=== PATIENT | male | born 1985 | race Hispanic/Latino ===

== ENCOUNTER 2017-03-15 19:13 | Emergency (ER) | payer OTHER ==
[~2017-03-15] VITALS: Ht 172.7 cm; Wt 127.4 kg
[~2017-03-15 19:13] MED LIST: AMOXICILLIN500 MG OR; AMOXICILLIN500 MG PO; CIPROFLOXACN500 MG PO; CLARITIN10 M1 PO; LOMOTIL2.5 MG PO; LORTAB 5/3255 MG PO; NAPROSYN500 MG PO; NO; ULTRAM50 M1 PO
[2017-03-15] MEDS ORDERED: CORTISPORIN OTI10 ML AU (20:00)
[2017-03-15] MEDS ORDERED: AMOXICILLIN/PO500 MG PO (20:00)
[2017-03-15 20:09] VITALS: BP 143/64
== END 2017-03-15 20:09 | disposition home or self-care (01) | DRG 153 ==
LOC: ED 19:13
PROC: 09C4XZZ Extirpation of Matter from Left External Auditory Canal, External Approach (ICD-10-PCS; principal; 2017-03-15)
DX: H66.93 Otitis media, unspecified, bilateral (principal); T16.2XXA Foreign body in left ear, initial encounter; X58.XXXA Exposure to other specified factors, initial encounter; Y93.E8 Activity, other personal hygiene; Y92.009 Unspecified place in unspecified non-institutional (private) residence as the place of occurrence of the external cause

== ENCOUNTER 2017-09-15 20:30 | Emergency (ER) | payer OTHER ==
[~2017-09-15] VITALS: Ht 172.7 cm; Wt 127.0 kg
[~2017-09-15 20:30] MED LIST changes: +AMOXICILLIN/PO500 MG PO; +CORTISPORIN OTI10 ML AU
[2017-09-15] MEDS ORDERED: ORPHENADRINE100 MG PO (21:05)
[2017-09-15] MEDS ORDERED: ULTRAM50 M1 PO (21:05)
[2017-09-15 21:35] VITALS: BP 119/73
== END 2017-09-15 21:35 | disposition home or self-care (01) | DRG 563 ==
LOC: ED 20:30
DX: S29.012A Strain of muscle and tendon of back wall of thorax, initial encounter (principal); X50.0XXA Overexertion from strenuous movement or load, initial encounter; Y93.H9 Activity, other involving exterior property and land maintenance, building and construction; Y92.89 Other specified places as the place of occurrence of the external cause

== ENCOUNTER 2018-02-15 14:59 | Emergency (ER) | payer SELFPAY ==
[~2018-02-15] VITALS: Ht 172.7 cm; Wt 123.8 kg
[~2018-02-15 14:59] MED LIST changes: +ORPHENADRINE100 MG PO
[2018-02-15] MEDS ORDERED: CYCLOBENZAPRINE5 MG PO (16:06)
[2018-02-15] MEDS ORDERED: MOTRIN400 MG PO (16:06)
[2018-02-15 16:15] VITALS: BP 135/70
== END 2018-02-15 16:20 | disposition home or self-care (01) | DRG 552 ==
LOC: ED 14:59
DX: M54.32 Sciatica, left side (principal)

== ENCOUNTER 2018-03-21 09:54 | Emergency (ER) | payer OTHER ==
[~2018-03-21] VITALS: Ht 172.7 cm; Wt 90.9 kg
[~2018-03-21 09:54] MED LIST changes: +CYCLOBENZAPRINE5 MG PO; +MOTRIN400 MG PO
[2018-03-21] MEDS ORDERED: AUGMENTIN500TAB PO (10:11)
[2018-03-21] MEDS ORDERED: TORADOL PO (10:11)
[2018-03-21 10:20] VITALS: BP 131/98
== END 2018-03-21 10:20 | disposition home or self-care (01) | DRG 156 ==
LOC: ED 09:54
DX: K11.20 Sialoadenitis, unspecified (principal); K08.89 Other specified disorders of teeth and supporting structures

== ENCOUNTER 2018-05-26 20:31 | Emergency (ER) | payer SELFPAY ==
[~2018-05-26] VITALS: Ht 172.7 cm; Wt 100.0 kg
[~2018-05-26 20:31] MED LIST changes: +AUGMENTIN500TAB PO; +TORADOL PO
[2018-05-26 21:58] VITALS: BP 152/82
== END 2018-05-26 22:12 | disposition home or self-care (01) | DRG 605 ==
LOC: ED 20:31
DX: S80.812A Abrasion, left lower leg, initial encounter (principal); W01.0XXA Fall on same level from slipping, tripping and stumbling without subsequent striking against object, initial encounter; Y93.89 Activity, other specified; Y92.89 Other specified places as the place of occurrence of the external cause

== ENCOUNTER 2019-01-18 11:36 | Emergency (ER) | payer MEDICAID ==
[~2019-01-18] VITALS: Ht 172.7 cm; Wt 125.0 kg
[2019-01-18 12:51] LABS: HEMATOCRIT 44.6 % (39.0-50.0); IMMATURE GRANULOCYTES 0.5 % (0.0-5.0); MEAN CELL VOLUME 85.4 fL CALC (80.0-100.0); MEAN CORPUSCULAR HGB 28.7 pG CALC (26.0-32.0); MEAN CORPUSCULAR HGB CONC 33.6 g/L CALC (32.0-36.0); NEUT# 9.71 thou/uL (1.82-7.42); RED BLOOD COUNT 5.22 mill/uL (4.70-6.10); RED CELL DISTRI WIDTH 12.9 % (11.5-15.5)
[2019-01-18 13:10] LABS: URINE BILIRUBIN - DIPSTICK NEGATIVE (NEGATIVE); URINE BLOOD DIPSTICK MODERATE (NEGATIVE); URINE COLOR YELLOW; URINE GLUCOSE - DIPSTICK NEGATIVE (NEGATIVE); URINE KETONE NEGATIVE (NEGATIVE); URINE NITRITE - DIPSTICK NEGATIVE (Negative); URINE PH 5.5 (4.5-8.0); URINE PROTEIN - DIPSTICK TRACE mg/dL (NEG-TRACE); URINE UROBILINOGEN - DIPSTICK 0.2 E.U./dL (0.2)
[2019-01-18 13:12] LABS: URINE LEUK ESTERASE MODERATE (NEGATIVE)
[2019-01-18 13:24] LABS: ALBUMIN 4.6 g/dL (3.2-5.0); ALKALINE PHOSPHATASE 108 u/l (38-126); ANION GAP 14 (6-22 (CALC)); BILIRUBIN, TOTAL 0.8 mg/dL (0.0-1.4); BUN 19 mg/dL (9-20); BUN/CREATININE RATIO 28 (12-20 (CALC)); CARBON DIOXIDE 29 mmol/l (22-30); CHLORIDE 102 mmol/l (95-108); CREATININE 0.7 mg/dL (0.7-1.3); GFR > 60 ML/MIN (>=60 (CALC)); GFR FOR AFR.AMER. > 60 ML/MIN (>=60 (CALC)); LIPASE 86 u/l (23-300); POTASSIUM 3.9 mmol/l (3.5-5.1); SGOT/AST 56 u/l (17-59); SODIUM 141 mmol/l (137-146); TOTAL PROTEIN 7.8 g/dL (6.3-8.2)
[2019-01-18 13:25] LABS: URINE RBC TNTC RBC/hpf (0-5); URINE SQUAMOUS EPITHELIAL CELL FEW EPI/hpf (0-FEW); URINE WBC TNTC WBC/hpf (0-5)
[2019-01-18 13:26] LABS: URINE BACTERIA MODERATE hpf
[2019-01-18] MEDS ORDERED: ULTRAM50 M1 PO (15:44)
[2019-01-18] MEDS ORDERED: KEFLEX500 M1 PO (15:44)
[2019-01-18 15:57] VITALS: BP 130/62
== END 2019-01-18 15:58 | disposition home or self-care (01) ==
LOC: ED 11:36
PROVIDERS: Emergency Medicine
DX: N13.6 Pyonephrosis (principal)

== ENCOUNTER 2020-01-31 18:48 | Inpatient (IN) | payer MEDICAID ==
[~2020-01-31] VITALS: Ht 172.7 cm; Wt 117.7 kg
[~2020-01-31 18:48] MED LIST changes: +KEFLEX500 M1 PO
--- NOTE | 2020-01-31 19:58 | NUR ---
PATIENT ESCORTED TO TREATMENT ROOM. AMBULATORY WITHOUT ASSITANCE. CHANGED INTO GOWN.
--- NOTE | 2020-01-31 19:59 | NUR ---
PROVIDER AT BEDSIDE
[2020-01-31 20:33] LABS: HEMATOCRIT 38.9 % (39.0-50.0); HEMOGLOBIN 13.3 g/dl (14.0-18.0); IMMATURE GRANULOCYTES 0.5 % (0.0-5.0); MEAN CELL VOLUME 83.3 fL CALC (80.0-100.0); MEAN CORPUSCULAR HGB 28.5 pG CALC (26.0-32.0); MEAN CORPUSCULAR HGB CONC 34.2 g/dL CAL (32.0-36.0); NEUT# 12.31 thou/uL (1.82-7.42); RED BLOOD COUNT 4.67 mill/uL (4.70-6.10); RED CELL DISTRI WIDTH 12.8 % (11.5-15.5)
--- NOTE | 2020-01-31 20:41 | NUR ---
pt to ct. no nausea or vomiting since arriving to ed.
[2020-01-31 20:46] LABS: URINE BILIRUBIN - DIPSTICK NEGATIVE (NEGATIVE); URINE BLOOD DIPSTICK SMALL (NEGATIVE); URINE COLOR YELLOW; URINE GLUCOSE - DIPSTICK NEGATIVE (NEGATIVE); URINE KETONE NEGATIVE (NEGATIVE); URINE NITRITE - DIPSTICK NEGATIVE (Negative); URINE PROTEIN - DIPSTICK TRACE mg/dL (NEG-TRACE); URINE SPECIFIC GRAVITY 1.015; URINE UROBILINOGEN - DIPSTICK 0.2 E.U./dL (0.2)
[2020-01-31 20:47] LABS: URINE LEUK ESTERASE LARGE (NEGATIVE)
[2020-01-31 20:50] LABS: ALBUMIN 4.6 g/dL (3.2-5.0); ALKALINE PHOSPHATASE 120 u/l (38-126); AMYLASE 163 u/l (30-110); ANION GAP 13 (6-22 (CALC)); BILIRUBIN, TOTAL 0.6 mg/dL (0.0-1.4); BUN 29 mg/dL (9-20); CARBON DIOXIDE 29 mmol/l (22-30); CHLORIDE 101 mmol/l (95-108); LIPASE 99 u/l (23-300); POTASSIUM 4.1 mmol/l (3.5-5.1); SGOT/AST 22 u/l (17-59); SODIUM 138 mmol/l (137-146); TOTAL PROTEIN 9.2 g/dL (6.3-8.2)
[2020-01-31 20:51] LABS: BUN/CREATININE RATIO 13 (12-20 (CALC)); CREATININE 2.3 mg/dL (0.7-1.3); GFR 33 ML/MIN (>=60 (CALC)); GFR FOR AFR.AMER. 39 ML/MIN (>=60 (CALC))
[2020-01-31 20:56] LABS: URINE WBC TNTC WBC/hpf (0-5)
--- NOTE | 2020-01-31 21:46 | NUR ---
DB REFUSED LAB DRAW FOR SECOND SET OF BLOOD CULTURES. NO VOMITING OR C/O NAUSEA SINCE ARRIVING AT ED. RESTING QUIETLY AT THIS TIME.
--- NOTE | 2020-01-31 22:26 | NUR ---
REPROT GIVEN TO TO CLAY ARTISAN. PATIENT TO BE TAKEN TO INPATIENT BED 5.
[2020-01-31 23:04] VITALS: BP 139/69
--- NOTE | 2020-01-31 23:04 | NUR ---
34 yr old tuval[place] male admitted to [facility] as med surg overflow per stretcher from er. transferred self to bed. bed weight obtained. speaks limited chilean but able to make needs known. history obtained per er record. oriented to room. fall precautions initiated. ivf began as ordered.
--- NOTE | 2020-02-01 04:00 | NUR ---
eyes closed. nad. ivf infusing well.
--- NOTE | 2020-02-01 06:20 | NUR ---
blood drawn & sent to lab.
[2020-02-01 07:00] LABS: HEMATOCRIT 35.7 % (39.0-50.0); HEMOGLOBIN 11.8 g/dl (14.0-18.0); IMMATURE GRANULOCYTES 0.4 % (0.0-5.0); MEAN CELL VOLUME 85.6 fL CALC (80.0-100.0); MEAN CORPUSCULAR HGB 28.3 pG CALC (26.0-32.0); MEAN CORPUSCULAR HGB CONC 33.1 g/dL CAL (32.0-36.0); NEUT# 10.25 thou/uL (1.82-7.42); RED BLOOD COUNT 4.17 mill/uL (4.70-6.10); RED CELL DISTRI WIDTH 12.8 % (11.5-15.5)
--- NOTE | 2020-02-01 07:00 | NUR ---
RECVD REPORT FROM YAJAIRA TOBIAS @START OF SHIFT.
--- NOTE | 2020-02-01 07:35 | NUR ---
PT SITTING UP IN BED, EATING BREAKFAST. PT DENIES N/V. DENIES PAIN. PT USES URINAL @BEDSIDE. PETERSON. BREATHING EVEN/UNLABORED.
[2020-02-01 07:54] LABS: CREATININE 2.2 mg/dL (0.7-1.3); POTASSIUM 4.1 mmol/l (3.5-5.1)
[2020-02-01 08:00] VITALS: BP 140/79
--- NOTE | 2020-02-01 08:38 | NUR ---
MED REC COMPLETED. PT STATES NO HOME MEDS.
--- NOTE | 2020-02-01 08:44 | NUR ---
PER MD, WILL PLACE PT ON COMFORT MEASURES ONLY. MONITOR TODAY FOR IMPROVEMENTS, WILL DISCUSS HOSPICE TOMORROW. DAUGHTER WANTS PT TO REMAIN AT [facility]. WILL REMOVE BP CUFF FOR PTS COMFORT. DOWNGRADED PT TO [facility].
--- NOTE | 2020-02-01 09:54 | NUR ---
PT REQUEST LABORER [employer]Y [employer] FOR MD ASSESSMENT. PT HAS BEEN SPEAKING KINYARWANDA TO THIS RN W/OUT DIFFICULTY- ANSWERS QUESTIONS CORRECTLY.
--- NOTE | 2020-02-01 10:00 | NUR ---
DR MCGOWAN NOTIFIED OF CONSULT. LM WITH OFFICE.
--- NOTE | 2020-02-01 10:16 | NUR ---
@BEDSIDE FOR ASSESSMENT W/PORTRAIT PHOTOGRAPHER. PT C/O N/V & NOT BEING ABLE TO KEEP ANYTHING DOWN x2 WEEKS. STATE HE RECENTLY HAD A KIDNEY STONE REMOVED BUT DOESNT REMEMBER THE DRS NAME. STATE THAT DR TOLD HIM HE HAD TO F/UP BC HE WILL HAVE MORE KIDNEY PROBLEMS BUT PT LOST HIS INS. HE CUTS LAWNS FOR A LIVING.
[2020-02-01 12:00] VITALS: BP 121/66
--- NOTE | 2020-02-01 12:08 | NUR ---
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 LM ON DR TAWOOD CELLPHONE.
[2020-02-01 12:50] VITALS: BP 126/76
--- NOTE | 2020-02-01 12:50 | NUR ---
PT TRANSFERRED TO MED SURG VIA WITH STAFF AND ALL BELONGINGS.
--- NOTE | 2020-02-01 12:58 | NUR ---
PT TRANSFERED TO [facility] [address] WITH ALL BELONGINGS.
--- NOTE | 2020-02-01 14:45 | NUR ---
INFORMED PT WITH DIRECTOR OF DEVELOPMENT AND MARKETING OF DEBORA (). THAT DR ATWOOD IS WANTING A FORD PLACED. PT "WANTS TO THINK ABOUT IT, THEN WILL LET US KNOW".
[2020-02-01 15:25] VITALS: BP 126/76
--- NOTE | 2020-02-01 16:00 | NUR ---
PT IS RESTING IN BED WITH NO DISTRESS NOTED. IV SITE IS FREE FROM REDNESS OR EDEMA.
--- NOTE | 2020-02-01 16:50 | NUR ---
ATTEMPTED TO PLACE A #16 AND #18 MALTESE FORD UNSUCCESFUL.
--- NOTE | 2020-02-01 16:52 | NUR ---
UNABLE TO GET THE FORD INTO THE HEAD OF THE PENIS. INFORMED DR ATWOOD, INQUIRED IF HE WAS UNCIRCUMICISED OR HAD A STRICTURE. INFORMED OF THE STRICTURE IS GOING TO COME AND SEE HIM AND SEE WHAT CAN BE DONE.
[2020-02-01 18:26] VITALS: BP 145/86
--- NOTE | 2020-02-01 18:30 | NUR ---
DR ATWOOD IN TO VISIT WITH PT. DEBORA WAGNER INTERPRETED FOR THE DR. AND EXPLAIEND THE SITUATION AND WHAT NEEDED TO BE DONE. PT IS REFUSING ANY INTERVENTIONS AT THIS TIME. CONTINUE TO OSBERVE AND MONITOR.
--- NOTE | 2020-02-01 20:00 | NUR ---
ASSESSMENT COMPLETED. PT. DROWSY AND AWAKENS WITH STIMULI. NO DISTRESS NOTED; DENIES NEEDS/PAIN. UPDATED ON POC. PT. REPORTS NO BURNING OR PAIN DURING URINATION. ENCOURAGED TO CALL FOR ANY NEEDS. CALL LIGHT IS IN REACH.
--- NOTE | 2020-02-01 23:27 | NUR ---
PT. VOMITED 100CC OF EMESIS; MEDICATED WITH ORDERED PRN ZOFRAN; NEW ORDER RECEIVED FROM DR. RODRIGUEZ; WILL REASSESS. PT. DENIES FURTHER NEEDS.
--- NOTE | 2020-02-02 03:00 | NUR ---
RESTING IN BED WITH NO DISTRESS NOTED; DENIES NEEDS. CALL LIGHT IS IN REACH.
[2020-02-02 03:47] VITALS: BP 142/85
[2020-02-02 07:38] VITALS: BP 154/96
--- NOTE | 2020-02-02 07:38 | NUR ---
PT SLEEPING IN BED. AWAKENED TO COMPLETE ASSESSMENT. A&O X3. WITH A FLAT AFFECT. PT DENIES ANY PAIN OR NEEDS AT THIS TIME. ASSESSMENT COMPLETED. DISCUSSED POC. CALL LIGHT IN REACH. CONTINUE TO MONITOR.
--- NOTE | 2020-02-02 12:30 | NUR ---
PT SITTING ON THE SIDE OF THE BED EATING LUNCH. NO NEEDS AT THIS TIME. CALL LIGHT IN REACH. CONTINUE TO MONITOR
[2020-02-02 16:00] VITALS: BP 129/84
--- NOTE | 2020-02-02 17:58 | NUR ---
PT C/O OF NAUSEA, ZOFRAN GIVEN.
--- NOTE | 2020-02-02 19:05 | NUR ---
REPORT FROM AVELINA GATES. PT RESTING IN BED WITH EYES CLOSED. ALERT AND ORIENTED. PT DENIES ANY PAIN OR DISCOMFORT. IV SITE APPEARS HEALTHY. PT DENIES ANY CURRENT WANTS OR NEEDS. DISCUSSED POC. PT VERBALIZED UNDERSTANDING. CALL LIGHT WITHIN REACH. WILL CONTINUE TO MONITOR.
[2020-02-02 19:25] VITALS: BP 140/96
--- NOTE | 2020-02-02 23:40 | NUR ---
PT RESTING IN BED WITH EYES CLOSED. NO APPARENT DISTRESS NOTED. CALL LIGHT WITHIN REACH. WILL CONTINUE TO MONITOR.
[2020-02-03 00:06] VITALS: BP 122/82
--- NOTE | 2020-02-03 03:32 | NUR ---
PT RESTING IN BED WITH EYES CLOSED. NO APPARENT DISTRESS NOTED. CALL LIGHT WITHIN REACH. WILL CONTINUE TO MONITOR.
[2020-02-03 04:37] VITALS: BP 154/99
[2020-02-03 05:13] LABS: HEMATOCRIT 35.5 % (39.0-50.0); HEMOGLOBIN 11.7 g/dl (14.0-18.0); IMMATURE GRANULOCYTES 0.3 % (0.0-5.0); MEAN CELL VOLUME 85.7 fL CALC (80.0-100.0); MEAN CORPUSCULAR HGB 28.3 pG CALC (26.0-32.0); NEUT# 7.41 thou/uL (1.82-7.42); RED BLOOD COUNT 4.14 mill/uL (4.70-6.10); RED CELL DISTRI WIDTH 12.6 % (11.5-15.5)
[2020-02-03 05:39] LABS: CREATININE 2.1 mg/dL (0.7-1.3); POTASSIUM 4.2 mmol/l (3.5-5.1)
[2020-02-03 07:08] VITALS: BP 140/87
--- NOTE | 2020-02-03 07:08 | NUR ---
PT SLEEPING IN BED. AWAKENED TO COMPLETE ASSESSMENT. A&O X3. FLAT AFFECT NOTED. PT DENIES ANY PAIN OR NEEDS AT THIS TIME. ASSESSMENT COMPLETED. DISCUSSED POC. CALL LIGHT IN REACH. CONTINUE TO MONITOR.
--- NOTE | 2020-02-03 08:40 | NUR ---
PT VOICED CONCERN OVER CURRENT MEDICAL SITUATION. EXPRESSED CONCERN OVER UROLOGY RECOMMENDATIONS ABOUT HAVING A SURGERY. EXPLAINED TO PT THE PROCEDURE RECOMMENDATIONS, STATES THAT HE WANTS TO TRY OTHER ALTERNATIVES BEFORE THINKING ABOUT THE PROCEDURE. EXPLAINED THE IMPORTANCE OF FOLLOWING UP WITH A UROLOGIST. STATES THAT THE REASON HE STOPPED FOLLOWING UP WAS DUE TO NOT HAVING ANY INSURANCE, NOW THAT HE HAS INSURANCE HE WILL BEGIN TO FOLLOW UP AGAIN WITH DR LUO.
[2020-02-03] MEDS ORDERED: TAMSULOSIN HCL0.4 MG PO (11:20)
[2020-02-03] MEDS ORDERED: AMOX/K CLAV875 M1 PO (11:22)
--- NOTE | 2020-02-03 13:21 | NUR ---
D/C INSTRUCTIONS GIVEN TO PT. IV INTACT UPON REMOVAL.
--- NOTE | 2020-02-03 13:38 | NUR ---
Discharge instructions given. Patient verbalizes understanding of same. Discharged in stable condition via Ambulatory to Home with staff. All belongings sent with pt.
== END 2020-02-03 13:38 | disposition home or self-care (01) | DRG 690 ==
LOC: ED 18:48 → ED-I 21:46 → ED 22:00 → ICU 22:01 → MS2 02-01 12:47
PROVIDERS: Emergency Medicine; Internal Medicine; ADMIT Internal Medicine; ATTEND Internal Medicine
DX: N13.6 Pyonephrosis (principal); N17.9 Acute kidney failure, unspecified; N35.911 Unspecified urethral stricture, male, meatal; E86.0 Dehydration; B95.1 Streptococcus, group B, as the cause of diseases classified elsewhere; Z87.442 Personal history of urinary calculi
CPT/HCPCS: S0164

== ENCOUNTER 2020-09-08 11:28 | Emergency (ER) | payer OTHER ==
[~2020-09-08] VITALS: Ht 172.7 cm; Wt 80.0 kg
[~2020-09-08 11:28] MED LIST changes: +AMOX/K CLAV875 M1 PO; +TAMSULOSIN HCL0.4 MG PO
[2020-09-08 12:15] LABS: URINE BILIRUBIN - DIPSTICK NEGATIVE (NEGATIVE); URINE BLOOD DIPSTICK SMALL (NEGATIVE); URINE COLOR YELLOW; URINE GLUCOSE - DIPSTICK NEGATIVE (NEGATIVE); URINE KETONE NEGATIVE (NEGATIVE); URINE PH 7.5 (4.5-8.0); URINE PROTEIN - DIPSTICK 30 mg/dL (NEG-TRACE); URINE UROBILINOGEN - DIPSTICK 0.2 E.U./dL (0.2)
[2020-09-08 12:18] LABS: URINE LEUK ESTERASE MODERATE (NEGATIVE); URINE NITRITE - DIPSTICK POSITIVE (Negative)
[2020-09-08 12:19] LABS: URINE BACTERIA MANY hpf; URINE EPITHELIAL CELLS FEW EPI/hpf (0-FEW); URINE RBC 0-2 RBC/hpf (0-5); URINE WBC 20-50 WBC/hpf (0-5)
[2020-09-08] MEDS ORDERED: CEPHALEXIN500 M1 PO (12:29)
[2020-09-08 12:51] VITALS: BP 142/89
== END 2020-09-08 12:57 | disposition home or self-care (01) ==
LOC: ED 11:28
PROVIDERS: Family Medicine
DX: T83.098A Other mechanical complication of other urinary catheter, initial encounter (principal); R82.71 Bacteriuria; Y84.6 Urinary catheterization as the cause of abnormal reaction of the patient, or of later complication, without mention of misadventure at the time of the procedure

== ENCOUNTER 2020-09-15 08:30 | Emergency (ER) | payer OTHER ==
[~2020-09-15] VITALS: Ht 172.7 cm; Wt 100.0 kg
[~2020-09-15 08:30] MED LIST changes: +CEPHALEXIN500 M1 PO
[2020-09-15 09:51] VITALS: BP 157/81
[2020-09-15] MEDS ORDERED: OMNI-PAC300 MG PO (09:59)
== END 2020-09-15 09:55 | disposition home or self-care (01) ==
LOC: ED 08:30
DX: T83.091A Other mechanical complication of indwelling urethral catheter, initial encounter (principal); Y84.6 Urinary catheterization as the cause of abnormal reaction of the patient, or of later complication, without mention of misadventure at the time of the procedure; R33.9 Retention of urine, unspecified

== ENCOUNTER 2020-10-18 15:00 | Emergency (ER) | payer OTHER ==
[~2020-10-18] VITALS: Ht 170.2 cm; Wt 111.0 kg
[~2020-10-18 15:00] MED LIST changes: +OMNI-PAC300 MG PO
[2020-10-18 15:20] LABS: URINE BILIRUBIN - DIPSTICK NEGATIVE (NEGATIVE); URINE BLOOD DIPSTICK MODERATE (NEGATIVE); URINE COLOR YELLOW; URINE GLUCOSE - DIPSTICK NEGATIVE (NEGATIVE); URINE KETONE NEGATIVE (NEGATIVE); URINE PH 6.5 (4.5-8.0); URINE PROTEIN - DIPSTICK 30 mg/dL (NEG-TRACE); URINE SPECIFIC GRAVITY 1.025; URINE UROBILINOGEN - DIPSTICK 0.2 E.U./dL (0.2)
[2020-10-18 15:25] LABS: URINE LEUK ESTERASE MODERATE (NEGATIVE); URINE NITRITE - DIPSTICK POSITIVE (Negative)
[2020-10-18 15:27] LABS: URINE BACTERIA RARE hpf; URINE WBC 50-100 WBC/hpf (0-5)
[2020-10-18] MEDS ORDERED: CIPROFLOXACN500 MG PO (15:36)
[2020-10-18 16:10] VITALS: BP 140/78
== END 2020-10-18 16:20 | disposition home or self-care (01) ==
LOC: ED 15:00
DX: T83.098A Other mechanical complication of other urinary catheter, initial encounter (principal); N39.0 Urinary tract infection, site not specified; R33.9 Retention of urine, unspecified; B96.89 Other specified bacterial agents as the cause of diseases classified elsewhere; Y84.6 Urinary catheterization as the cause of abnormal reaction of the patient, or of later complication, without mention of misadventure at the time of the procedure

== ENCOUNTER 2020-11-30 13:39 | Emergency (ER) | payer OTHER ==
[~2020-11-30] VITALS: Ht 170.2 cm; Wt 127.0 kg
[2020-11-30 14:00] VITALS: BP 118/58
[2020-11-30 14:42] LABS: URINE BILIRUBIN - DIPSTICK NEGATIVE (NEGATIVE); URINE BLOOD DIPSTICK TRACE-LYSED (NEGATIVE); URINE COLOR YELLOW; URINE GLUCOSE - DIPSTICK NEGATIVE (NEGATIVE); URINE KETONE NEGATIVE (NEGATIVE); URINE NITRITE - DIPSTICK NEGATIVE (Negative); URINE PH 8.5 (4.5-8.0); URINE PROTEIN - DIPSTICK 100 mg/dL (NEG-TRACE); URINE UROBILINOGEN - DIPSTICK 0.2 E.U./dL (0.2)
[2020-11-30 14:43] LABS: URINE LEUK ESTERASE LARGE (NEGATIVE)
[2020-11-30 14:49] LABS: URINE WBC 20-50 WBC/hpf (0-5)
[2020-11-30 14:50] LABS: URINE BACTERIA MANY hpf
[2020-11-30] MEDS ORDERED: KEFLEX500 M1 PO (15:51)
== END 2020-11-30 16:35 | disposition home or self-care (01) ==
LOC: ED 13:39
DX: N39.0 Urinary tract infection, site not specified (principal); T83.098A Other mechanical complication of other urinary catheter, initial encounter; R33.9 Retention of urine, unspecified; B96.89 Other specified bacterial agents as the cause of diseases classified elsewhere; Y84.6 Urinary catheterization as the cause of abnormal reaction of the patient, or of later complication, without mention of misadventure at the time of the procedure

== ENCOUNTER 2020-12-31 18:32 | Emergency (ER) | payer OTHER ==
[2020-12-31] MEDS ORDERED: PENICILLIN V P500 MG PO (18:54)
[2020-12-31] MEDS ORDERED: TRAMADOL HYDROC50 M1 PO (18:54)
[2020-12-31 19:46] VITALS: BP 144/92
== END 2020-12-31 19:46 | disposition home or self-care (01) ==
LOC: ED 18:32
DX: K03.81 Cracked tooth (principal); R33.9 Retention of urine, unspecified

== ENCOUNTER 2021-03-17 05:31 | Emergency (ER) | payer OTHER ==
[~2021-03-17] VITALS: Ht 167.6 cm; Wt 128.0 kg
[~2021-03-17 05:31] MED LIST changes: +PENICILLIN V P500 MG PO; +TRAMADOL HYDROC50 M1 PO
[2021-03-17 06:15] LABS: IMMATURE GRANULOCYTES 0.7 % (0.0-5.0); MEAN CELL VOLUME 84.7 fL CALC (80.0-100.0); MEAN CORPUSCULAR HGB 27.5 pG CALC (26.0-32.0); MEAN CORPUSCULAR HGB CONC 32.5 g/dL CAL (32.0-36.0); NEUT# 8.21 thou/uL (1.82-7.42); RED BLOOD COUNT 5.09 mill/uL (4.70-6.10); RED CELL DISTRI WIDTH 13.7 % (11.5-15.5)
[2021-03-17 06:18] LABS: HEMATOCRIT 43.1 % (39.0-50.0)
[2021-03-17 06:24] LABS: URINE BILIRUBIN - DIPSTICK NEGATIVE (NEGATIVE); URINE BLOOD DIPSTICK TRACE-LYSED (NEGATIVE); URINE COLOR YELLOW; URINE GLUCOSE - DIPSTICK NEGATIVE (NEGATIVE); URINE KETONE NEGATIVE (NEGATIVE); URINE LEUK ESTERASE NEGATIVE (NEGATIVE); URINE PROTEIN - DIPSTICK TRACE mg/dL (NEG-TRACE); URINE SPECIFIC GRAVITY >=1.030; URINE UROBILINOGEN - DIPSTICK 0.2 E.U./dL (0.2)
[2021-03-17 06:26] LABS: URINE NITRITE - DIPSTICK NEGATIVE (Negative)
[2021-03-17 06:35] LABS: ALBUMIN 4.2 g/dL (3.2-5.0); ALKALINE PHOSPHATASE 76 u/l (38-126); AMYLASE 134 u/l (30-110); ANION GAP 13 (6-22 (CALC)); BILIRUBIN, TOTAL 0.5 mg/dL (0.0-1.4); BUN 28 mg/dL (9-20); CARBON DIOXIDE 24 mmol/l (22-30); CHLORIDE 104 mmol/l (95-108); LIPASE 175 u/l (23-300); POTASSIUM 3.9 mmol/l (3.5-5.1); SGOT/AST 38 u/l (17-59); SODIUM 138 mmol/l (137-146); TOTAL PROTEIN 7.7 g/dL (6.3-8.2)
[2021-03-17 06:37] LABS: BUN/CREATININE RATIO 25 (12-20 (CALC)); CREATININE 1.1 mg/dL (0.7-1.3); GFR > 60 ML/MIN (>=60 (CALC)); GFR FOR AFR.AMER. > 60 ML/MIN (>=60 (CALC))
[2021-03-17 07:36] VITALS: BP 145/74
[2021-03-17] MEDS ORDERED: MIRALAX17 GM/SCOO PO (07:54)
[2021-03-17] MEDS ORDERED: COLACE100 MG PO (07:54)
== END 2021-03-17 07:55 | disposition home or self-care (01) ==
LOC: ED 05:31
PROVIDERS: Emergency Medicine
DX: N13.30 Unspecified hydronephrosis (principal); K59.00 Constipation, unspecified; Z20.822 Contact with and (suspected) exposure to COVID-19

== ENCOUNTER 2022-03-16 14:10 | Emergency (ER) | payer OTHER ==
[~2022-03-16] VITALS: Ht 167.6 cm; Wt 100.0 kg
[~2022-03-16 14:10] MED LIST changes: +COLACE100 MG PO; +MIRALAX17 GM/SCOO PO
[2022-03-16 14:17] VITALS: BP 149/105
[2022-03-16] MEDS ORDERED: AMOX/K CLAV875 M1 PO (14:22)
[2022-03-16 14:23] VITALS: BP 149/105
== END 2022-03-16 14:31 | disposition home or self-care (01) ==
LOC: ED 14:10
DX: J02.9 Acute pharyngitis, unspecified (principal)

== ENCOUNTER 2022-05-05 20:32 | Emergency (ER) | payer OTHER ==
[~2022-05-05] VITALS: Ht 167.6 cm; Wt 110.0 kg
[2022-05-05 22:05] VITALS: BP 188/108
[2022-05-05] MEDS ORDERED: AMOXICILLIN500 MG PO (22:12)
[2022-05-05] MEDS ORDERED: LORTAB 1010 MG PO (22:12)
[2022-05-05 22:15] VITALS: BP 165/103
[2022-05-05 22:20] VITALS: BP 188/108
== END 2022-05-05 22:35 | disposition home or self-care (01) ==
LOC: ED 20:32
DX: K04.7 Periapical abscess without sinus (principal)

== ENCOUNTER 2022-11-08 18:08 | Emergency (ER) | payer OTHER ==
[~2022-11-08] VITALS: Ht 167.6 cm; Wt 104.3 kg
[~2022-11-08 18:08] MED LIST changes: +LORTAB 1010 MG PO
[2022-11-08 19:40] VITALS: BP 135/89
== END 2022-11-08 19:40 | disposition home or self-care (01) ==
LOC: ED 18:08
DX: R04.0 Epistaxis (principal); Z20.822 Contact with and (suspected) exposure to COVID-19

== ENCOUNTER 2023-01-01 09:09 | Emergency (ER) | payer OTHER ==
[~2023-01-01] VITALS: Ht 167.6 cm; Wt 136.0 kg
[2023-01-01] MEDS ORDERED: CLINDAMYCIN300 M1 PO (09:28)
[2023-01-01] MEDS ORDERED: MOTRIN400 MG/TAB PO (09:28)
[2023-01-01] MEDS ORDERED: TRAMADOL HYDROC50 M1 PO (09:28)
[2023-01-01 10:23] VITALS: BP 133/78
== END 2023-01-01 10:30 | disposition home or self-care (01) ==
LOC: ED 09:09
DX: K08.89 Other specified disorders of teeth and supporting structures (principal); F17.200 Nicotine dependence, unspecified, uncomplicated

== ENCOUNTER 2023-05-24 12:05 | Emergency (ER) | payer OTHER ==
[~2023-05-24] VITALS: Ht 167.6 cm; Wt 142.0 kg
[~2023-05-24 12:05] MED LIST changes: +CLINDAMYCIN300 M1 PO; +MOTRIN400 MG/TAB PO
[2023-05-24 12:40] VITALS: BP 132/84
[2023-05-24 13:01] VITALS: BP 116/73
[2023-05-24 13:31] VITALS: BP 122/76
[2023-05-24] MEDS ORDERED: NAPROXEN500 MG PO (13:59)
[2023-05-24] MEDS ORDERED: METHOCARBAMOL500 MG PO (13:59)
[2023-05-24] MEDS ORDERED: MEDDOSEPAK PO (14:00)
[2023-05-24 14:01] VITALS: BP 134/79
[2023-05-24 14:14] VITALS: BP 134/79
== END 2023-05-24 14:28 | disposition home or self-care (01) ==
LOC: ED 12:05
DX: M25.511 Pain in right shoulder (principal); E66.9 Obesity, unspecified; F17.200 Nicotine dependence, unspecified, uncomplicated

== ENCOUNTER 2024-04-30 20:32 | Emergency (ER) | payer OTHER ==
[~2024-04-30] VITALS: Ht 167.6 cm; Wt 150.0 kg
[~2024-04-30 20:32] MED LIST changes: +MEDDOSEPAK PO; +METHOCARBAMOL500 MG PO; +NAPROXEN500 MG PO
[2024-04-30] MEDS ORDERED: PENICILLN VK500 MG PO (21:33)
[2024-04-30] MEDS ORDERED: NAPROXEN 250 MG/TAB PO ONE (22:00)
[2024-04-30] MEDS ORDERED: PENicillin V POTASSIUM 500 MG/TAB PO ONE (22:00)
[2024-04-30] MEDS ORDERED: traMADol HCL 50 MG/TAB PO ONE (22:00)
[2024-04-30 22:20] VITALS: BP 144/74
== END 2024-04-30 22:20 | disposition home or self-care (01) ==
LOC: ED 20:32
DX: K04.7 Periapical abscess without sinus (principal)

== ENCOUNTER 2024-07-05 22:20 | Emergency (ER) | payer OTHER ==
[~2024-07-05] VITALS: Ht 167.6 cm; Wt 127.0 kg
[~2024-07-05 22:20] MED LIST changes: +PENICILLN VK500 MG PO
[2024-07-05 22:33] VITALS: BP 130/64
[2024-07-05] MEDS ORDERED: ONDANSETRON HCl 4 MG/2 ML SDV IV ONE (22:45)
[2024-07-05] MEDS ORDERED: ORPHENADRINE CITRATE 30 MG/ML AMP IV ONE (22:45)
[2024-07-05] MEDS ORDERED: HYDROmorphone HCL 2 MG/AMP IV ONE (22:45)
[2024-07-05] MEDS ORDERED: DEXAMETHASONE SOD. PHOSPHATE 10 MG/ML VIAL IV ONE (22:45)
[2024-07-05 23:00] LABS: BASO% 0.2 % (0-3); EOS% 1.1 % (0-8); HEMATOCRIT 46.1 % (39.0-50.0); HEMOGLOBIN 15.6 g/dl (14.0-18.0); IMMATURE GRANULOCYTES 0.2 % (0.0-5.0); LYMPH% 8.3 % (15-41); MEAN CELL VOLUME 85.5 fL CALC (80.0-100.0); MEAN CORPUSCULAR HGB 28.9 pG CALC (26.0-32.0); MEAN CORPUSCULAR HGB CONC 33.8 g/dL CAL (32.0-36.0); MONO% 5.9 % (2-13); NEUT# 13.81 thou/uL (1.82-7.42); NEUT% 84.3 % (42-76); RED BLOOD COUNT 5.39 mill/uL (4.70-6.10); RED CELL DISTRI WIDTH 13.1 % (11.5-15.5)
[2024-07-05 23:02] VITALS: BP 108/51
[2024-07-05 23:27] LABS: ALBUMIN 4.9 g/dL (3.2-5.0); CREATININE 1.4 mg/dL (0.7-1.3); POTASSIUM 4.4 mmol/l (3.5-5.1); TOTAL PROTEIN 8.5 g/dL (6.3-8.2)
[2024-07-05 23:29] LABS: BILIRUBIN, TOTAL 0.9 mg/dL (0.2-1.3)
[2024-07-06] VITALS (9 sets, daily range): BP systolic 78–139; BP diastolic 43–91
[2024-07-06 00:38] LABS: URINE BLOOD DIPSTICK Moderate (NEGATIVE); URINE CLARITY Cloudy; URINE COLOR Yellow; URINE GLUCOSE - DIPSTICK Negative (NEGATIVE); URINE KETONE Negative (NEGATIVE); URINE LEUK ESTERASE Large (Negative); URINE NITRITE - DIPSTICK Negative (Negative); URINE PH 6.5 (4.5-8.0); URINE PROTEIN - DIPSTICK 100 mg/dL (NEG-TRACE); URINE SPECIFIC GRAVITY 1.025
[2024-07-06 00:41] LABS: URINE SQUAMOUS EPITHELIAL CELL FEW EPI/hpf (0-FEW); URINE WBC 20-50 WBC/hpf (0-5)
[2024-07-06 00:42] LABS: URINE BACTERIA MANY hpf; URINE MUCUS FEW hpf (NONE-FEW)
[2024-07-06] MEDS ORDERED: SODIUM CHLORIDE 0.9% 1,000 ML IV ONE ×2 (01:45→02:15)
[2024-07-06] MEDS ORDERED: KETOROLAC TROMETHAMINE 15 MG/ML SDV IV ONE (02:10)
[2024-07-06] MEDS ORDERED: HYDROmorphone HCL 2 MG/AMP IV ONE (02:15)
== END 2024-07-06 03:52 | disposition home or self-care (01) | DRG 690 ==
LOC: ED 22:20
PROVIDERS: Emergency Medicine
DX: N13.6 Pyonephrosis (principal); Z72.0 Tobacco use

== ENCOUNTER 2024-10-27 22:46 | Emergency (ER) | payer OTHER ==
[~2024-10-27] VITALS: Ht 167.6 cm; Wt 136.0 kg
[~2024-10-27 22:46] MED LIST changes: +ONDANSETRON4 MG PO; +TAMSULOSIN0.4 MG PO
[2024-10-27 22:55] VITALS: BP 167/113
[2024-10-27] MEDS ORDERED: PERCOCET 5/325M1 TAB PO (22:59)
[2024-10-27] MEDS ORDERED: LIDOCAINE21 MT (22:59)
[2024-10-27] MEDS ORDERED: LIDOCAINE VISCOUS 2% 15 ML UDC PO ONE (23:00)
[2024-10-27] MEDS ORDERED: AMOXICILLIN & POT CLAVULANATE 875 MG/TAB PO ONE (23:00)
[2024-10-27 23:01] VITALS: BP 125/54
[2024-10-27 23:24] VITALS: BP 125/54
== END 2024-10-27 23:25 | disposition home or self-care (01) | DRG 159 ==
LOC: ED 22:46
DX: K02.9 Dental caries, unspecified (principal)

== ENCOUNTER 2024-11-18 23:45 | Emergency (ER) | payer SELFPAY ==
[~2024-11-18] VITALS: Ht 167.6 cm; Wt 136.0 kg
[~2024-11-18 23:45] MED LIST changes: +LIDOCAINE21 MT; +PERCOCET 5/325M1 TAB PO
[2024-11-19] MEDS ORDERED: SODIUM CHLORIDE 0.9% 1,000 ML IV STA (00:16)
[2024-11-19] MEDS ORDERED: TAMSULOSIN HCL 0.4 MG CAP PO STA (00:16)
[2024-11-19] MEDS ORDERED: MORPHINE SULFATE 4 MG/ML VIAL IV STA (00:16)
[2024-11-19] MEDS ORDERED: KETOROLAC TROMETHAMINE 30 MG/ML SDV IV ONE (00:20)
[2024-11-19] MEDS ORDERED: PROMETHAZINE HCL 25 MG/ML AMP IV ONE (00:20)
[2024-11-19 01:04] VITALS: BP 119/79
[2024-11-19 01:12] LABS: BASO% 0.3 % (0-3); HEMATOCRIT 45.2 % (39.0-50.0); IMMATURE GRANULOCYTES 0.2 % (0.0-5.0); MEAN CELL VOLUME 86.1 fL CALC (80.0-100.0); MEAN CORPUSCULAR HGB 28.6 pG CALC (26.0-32.0); MEAN CORPUSCULAR HGB CONC 33.2 g/dL CAL (32.0-36.0); MONO% 6.5 % (2-13); NEUT# 9.47 thou/uL (1.82-7.42); RED BLOOD COUNT 5.25 mill/uL (4.70-6.10)
[2024-11-19 01:15] LABS: URINE BILIRUBIN - DIPSTICK Negative (NEGATIVE); URINE BLOOD DIPSTICK Trace-intact (NEGATIVE); URINE GLUCOSE - DIPSTICK Negative (NEGATIVE); URINE KETONE Negative (NEGATIVE); URINE LEUK ESTERASE Trace (NEGATIVE); URINE NITRITE - DIPSTICK Negative (Negative); URINE PH 8.5 (4.5-8.0); URINE PROTEIN - DIPSTICK 100 mg/dL (NEG-TRACE)
[2024-11-19 01:18] LABS: URINE COLOR Yellow
[2024-11-19 01:26] LABS: URINE WBC >100 WBC/hpf (0-5)
[2024-11-19 01:27] LABS: URINE BACTERIA MODERATE hpf; URINE EPITHELIAL CELLS MODERATE EPI/hpf (0-FEW); URINE MUCUS MODERATE hpf (NONE-FEW)
[2024-11-19 01:29] LABS: ALBUMIN 4.2 g/dL (3.2-5.0); BILIRUBIN, TOTAL 0.6 mg/dL (0.2-1.3); CREATININE 1.1 mg/dL (0.7-1.3); TOTAL PROTEIN 7.4 g/dL (6.3-8.2)
[2024-11-19 01:30] VITALS: BP 109/69
[2024-11-19 02:00] VITALS: BP 116/68
[2024-11-19 02:31] VITALS: BP 180/115
[2024-11-19] MEDS ORDERED: LORTAB 5/3255 MG PO (02:34)
[2024-11-19] MEDS ORDERED: TAMSULOSIN0.4 MG PO ×2 (02:34→13:07)
[2024-11-19] MEDS ORDERED: BACTRIM DS1 TAB PO ×2 (02:34→13:07)
[2024-11-19] MEDS ORDERED: SULFAMETHOXAZOLE W/TRIMETHOPRI 1 COMBO TAB PO ONE (02:35)
[2024-11-19] MEDS ORDERED: traMADol HCL 50 MG/TAB PO ONE (02:35)
[2024-11-19 02:49] VITALS: BP 143/75
[2024-11-19 02:55] VITALS: BP 143/75
== END 2024-11-19 02:55 | disposition home or self-care (01) | DRG 690 ==
LOC: ED 23:45
PROVIDERS: Family Medicine
DX: N13.6 Pyonephrosis (principal); B96.89 Other specified bacterial agents as the cause of diseases classified elsewhere; I10 Essential (primary) hypertension; F17.210 Nicotine dependence, cigarettes, uncomplicated; Z87.442 Personal history of urinary calculi
CPT/HCPCS: J2550

== ENCOUNTER 2024-12-26 12:29 | Emergency (ER) | payer SELFPAY ==
[2024-12-26] VITALS (8 sets, daily range): BP systolic 120–139; BP diastolic 68–86
[~2024-12-26] VITALS: Ht 167.6 cm; Wt 135.0 kg
[~2024-12-26 12:29] MED LIST changes: +BACTRIM DS1 TAB PO
[2024-12-26] MEDS ORDERED: ONDANSETRON HCl 4 MG/2 ML SDV IV ONE (12:35)
[2024-12-26] MEDS ORDERED: SODIUM CHLORIDE 0.9% 1,000 ML IV ONE (12:35)
[2024-12-26] MEDS ORDERED: MORPHINE SULFATE 4 MG/ML VIAL IV ONE (12:45)
[2024-12-26 13:15] LABS: URINE BILIRUBIN - DIPSTICK Negative (NEGATIVE); URINE BLOOD DIPSTICK Trace-intact (NEGATIVE); URINE GLUCOSE - DIPSTICK Negative (NEGATIVE); URINE KETONE Negative (NEGATIVE); URINE NITRITE - DIPSTICK Negative (Negative); URINE PH 5.5 (4.5-8.0); URINE PROTEIN - DIPSTICK 30 mg/dL (NEG-TRACE)
[2024-12-26 13:16] LABS: BASO% 0.3 % (0-3); EOS% 4.5 % (0-8); HEMATOCRIT 47.5 % (39.0-50.0); HEMOGLOBIN 16.1 g/dl (14.0-18.0); IMMATURE GRANULOCYTES 0.3 % (0.0-5.0); LYMPH% 17.4 % (15-41); MEAN CELL VOLUME 84.8 fL CALC (80.0-100.0); MEAN CORPUSCULAR HGB 28.8 pG CALC (26.0-32.0); MEAN CORPUSCULAR HGB CONC 33.9 g/dL CAL (32.0-36.0); MONO% 7.2 % (2-13); NEUT# 6.85 thou/uL (1.82-7.42); NEUT% 70.3 % (42-76); RED BLOOD COUNT 5.6 mill/uL (4.70-6.10)
[2024-12-26 13:23] LABS: ALBUMIN 4.8 g/dL (3.2-5.0); CREATININE 0.9 mg/dL (0.7-1.3); POTASSIUM 3.9 mmol/l (3.5-5.1); TOTAL PROTEIN 8.3 g/dL (6.3-8.2)
[2024-12-26 13:24] LABS: BILIRUBIN, TOTAL 0.9 mg/dL (0.2-1.3)
[2024-12-26 13:35] LABS: URINE COLOR Yellow; URINE LEUK ESTERASE Small (NEGATIVE)
[2024-12-26 14:34] LABS: URINE BACTERIA MODERATE hpf
[2024-12-26] MEDS ORDERED: CEPHALEXIN500 M1 PO (15:55)
[2024-12-26] MEDS ORDERED: ZOFRAN4 MG/TAB PO (15:57)
[2024-12-28] MEDS ORDERED: BACTRIM DS1 TAB PO ×2 (10:31→10:33)
== END 2024-12-26 16:08 | disposition home or self-care (01) | DRG 690 ==
LOC: ED 12:29
PROVIDERS: Family Medicine
DX: N39.0 Urinary tract infection, site not specified (principal); B96.89 Other specified bacterial agents as the cause of diseases classified elsewhere; I10 Essential (primary) hypertension; E66.01 Morbid (severe) obesity due to excess calories; Z72.0 Tobacco use; Z87.442 Personal history of urinary calculi
CPT/HCPCS: J2405